=== PATIENT | male | born 1965 | race Two or more races ===

== ENCOUNTER 2025-07-15 10:58 | Emergency (ER) | payer SELFPAY ==
[2025-07-15 11:07] VITALS: BP 138/85; PULSE 59; RESP 18; TEMP 36.4; O2SAT 99; BMI 24.4
--- NOTE | 2025-07-15 11:14 | XR_ITS ---
EXAMINATION: PA chest single view TECHNIQUE: Upright PA chest single view Date and time: July 15, 2025, 1137 hours INDICATIONS: Chest pain today. FINDINGS: Normal heart size Lungs are clear. Osseous structures are intact IMPRESSION: No active disease
--- NOTE | 2025-07-15 11:14 | EKG_ITS ---
[facility] Test Date: 2025-07-15 Pat Name: ORLANDO FLETCHER Department: Room: - Gender: Male Production Manager: : [id number] Requested By: Irvin Cardenas Order Number: [id number] Reading MD: Irvin Cardenas Measurements Intervals [place] Rate: 56 P: 48 [place]: 161 QRS: 64 QRSD: 82 T: 55 QT: 403 QTc: 392 Interpretive Statements SINUS BRADYCARDIA EARLY REPOLARIZATION [ST ELEVATION WITH NORMALLY INFLECTED T-WAVE] No previous ECG available for comparison /[id number]/S0/[id number].pdf
--- NOTE | 2025-07-15 11:15 | PD.EDRME ---
Rapid Medical Screening Exam RME Arrival date/time: 07/15/25 10:58 59-year-old male with no known medical history presents to the emergency room with a chief complaint of dizziness, lightheadedness, left-sided headache x 1 day I have greeted and performed a focused initial assessment of this patient. A comprehensive ED assessment and evaluation of the patient, analysis of all test results, and completion of the medical decision making process will be conducted by additional ED providers. Chief Complaint: Neck Pain/Injury Time Seen by Provider: 07/15/25 11:07 Vital signs: Vital Signs Temperature 97.5 F 07/15/25 11:07 Pulse Rate 59 L 07/15/25 11:07 Respiratory Rate 18 07/15/25 11:07 Blood Pressure 138/85 H 07/15/25 11:07 Pulse Oximetry (%) 99 07/15/25 11:07 Oxygen Delivery Method Room Air 07/15/25 11:07 Vital signs reviewed by provider: Yes Exam: GCS of 15. Clear bilateral lung sounds. Pupils are PERRLA EOMs are intact Clinical Impression: Dizziness, lightheadedness
[2025-07-15 11:36] LABS: Basophils # (Auto) 0.0 Thou/mm3 (0.0-0.2); Basophils % (Auto) 1 % (0-2.5); Eosinophils # (Auto) 0.1 Thou/mm3 (0.0-0.5); Eosinophils % (Auto) 1 % (0-10); Hematocrit 45.3 % (41.0-53.0); Hemoglobin 15.5 g/dL (13.5-16.0); Immature Granulocytes Auto 0.05 Thou/mm3 (0.00-0.00); Lymphocytes # (Auto) 1.5 Thou/mm3 (1.0-4.8); Lymphocytes % (Auto) 23 % (10-50); Mean Corpuscular HGB Conc 34.2 g/dl (31.0-37.0); Mean Corpuscular Hemoglobin 28.9 pg (25.0-35.0); Mean Corpuscular Volume 85 fL (80-100); Monocytes # (Auto) 0.6 Thou/mm3 (0.0-0.8); Monocytes % (Auto) 9 % (0-12); Neutrophils # (Auto) 4.4 Thou/mm3 (1.8-7.7); Neutrophils % (Auto) 66 % (37-80); Nucleated Red Blood Cell # 0.00 Thou/mm3 (0.00-0.00); Nucleated Red Blood Cell % 0 /100 WBC (0); Platelet Count 193 Thou/mm3 (140-440); RDW Standard Deviation 37.8 fL (35.1-43.9); Red Blood Count 5.36 Miln/mm3 (4.50-5.90); White Blood Count 6.7 Thou/mm3 (3.8-10.6)
--- NOTE | 2025-07-15 11:48 | EDNOTE_ITS ---
<Statement entered by Janiya Wadsworth MD - 07/31/25 17:41> I, Janiya Wadsworth MD, have reviewed the history, exam, and assessment of the patient. I have evaluated the patient independently and agree with the plan of care documented by [ ]. All diagnostic studies were reviewed and discussed. I confirm the diagnosis as documented by the Resident. I was present during the Medical Decision Making for this patient. The patient's plan of care was created between myself and the Resident and consistent with our discussion of the patient's case. ED General RME/HPI General Chief complaint: Neck Pain/Injury Stated complaint: NECK PAIN /10, DIZZY, NAUSEA Time Seen by Provider: 07/15/25 11:07 Arrival date/time: 07/15/25 10:58 RME / HPI RME / HPI narrative: 07/15/25 10:58 59-year-old male with no known medical history presents to the emergency room with a chief complaint of dizziness, lightheadedness, left-sided headache x 1 day I have greeted and performed a focused initial assessment of this patient. A comprehensive ED assessment and evaluation of the patient, analysis of all test results, and completion of the medical decision making process will be conducted by additional ED providers. Exam: GCS of 15. Clear bilateral lung sounds. Pupils are PERRLA EOMs are intact Impression: Dizziness, lightheadedness Related Data Home Medications ?Medication ?Instructions ?Recorded ?Confirmed cetirizine 10 mg tablet (Zyrtec) 10 mg PO QDAY PRN All ergy Symptoms 06/21/21 06/21/21 Previous Rx's ?Medication ?Instructions ?Recorded meclizine 25 mg tablet 25 mg PO BID PRN dizziness 1 week 07/15/25 #14 tabs Allergies Allergy/AdvReac Type Severity Reaction Status Date / Time No Known Allergies Allergy Verified 07/15/25 11:03 ED Exam Narrative Physical exam: Physical Exam: GENERAL: Awake, answering questions appropriately, appears stated age HEENT: NC/AT. Moist mucosa. PERRLA/EOMI. Tenderness to palpation of the left levator scapular region CARDIO: Heart RRR, no obvious murmurs, no JVD. PULM: No coughing or visible SOB. Lungs CTA B/L. GI: Abdomen soft, NT/ND, +BS. SKIN/MSK/EXT: No wounds/discoloration/rashes/edema/amputations noted. +Pedal pulses present B/L. NEURO: Walks with an unsteady gait. Oriented x3, Moves extremities x4, no focal neurologic deficits noted, Romberg negative, [id number] negative, pronator drift negative, muscle strength 5 out of 5 bilateral upper and lower extremities, sensations grossly intact, cranial nerves II to XII grossly intact. Hints exam shows no nystagmus, head impulse stays central and there is no changes to test skew Course Quality Measures none Orders Category Date Time Status CT Screening NOW Care 07/15/25 12:44 Active EKG (ED ONLY) *Do not use* NOW Care 07/15/25 11:14 Completed Insert IV NOW Care 07/15/25 12:[address] angio head Stat Exams 07/15/25 12:[address] cervical spine wo con Stat Exams 07/15/25 12:[address] head/brain wo con Stat Exams 07/15/25 12:43 Completed EKG (ED Only) Stat Exams 07/15/25 11:14 Draft XR chest 1V portable Stat Exams 07/15/25 11:14 Completed B-Type Natriuretic Peptide Stat Lab 07/15/25 11:28 Completed CBC Stat Lab 07/15/25 11:28 Completed Comprehensive Metabolic Panel Stat Lab 07/15/25 11:28 Completed Drug Screen,Urine Stat Lab 07/15/25 11:55 Completed Free T4 (Free Thyroxine) Stat Lab 07/15/25 11:28 Completed Magnesium Stat Lab 07/15/25 11:28 Completed Partial Thromboplastin Time Stat Lab 07/15/25 11:28 Completed Prothrombin Time with INR Stat Lab 07/15/25 11:28 Completed TSH [Thyroid Stimulating Hormone] Stat Lab 07/15/25 11:28 Completed Troponin I Stat Lab 07/15/25 11:28 Completed Urinalysis, C/S if Indicated Stat Lab 07/15/25 11:55 Completed Vital Signs Vital signs: Vital Signs Temperature 97.5 F 07/15/25 11:07 Pulse Rate 59 L 07/15/25 11:07 Respiratory Rate 18 07/15/25 11:07 Blood Pressure 138/85 H 07/15/25 11:07 Pulse Oximetry (%) 99 07/15/25 11:07 Oxygen Delivery Method Room Air 07/15/25 11:07 Discharge Plan Plan Patient Disposition: HOME (Self Care) Patient condition on transfer: Stable Prescriptions/Referrals Prescriptions/Med Rec: New meclizine 25 mg tablet 25 mg PO BID PRN (Reason: dizziness) 7 Days Qty: 14 0RF No Action cetirizine [Zyrtec] 10 mg Tablet 10 mg PO QDAY PRN (Reason: Allergy Symptoms) Referrals: Kike Taveras MD [Primary Care Provider, Family Practice] - In 1 week Problem List Clinical Impression: Episodic peripheral vertigo Patient/Caregiver Discharge Instructions Education Materials: Dizziness Vertigo and Balance ... Additional Instructions: Por favor, tome meclizina 25 mg por v?a oral dos veces al d?a seg?n sea necesario para el mareo. Consulte con posada m?dico de cabecera en el plazo de gillian semana para un seguimiento exhaustivo. Si wallace s?ntomas empeoran o si presenta mareos intensos, p?rdida del conocimiento, confusi?n o dolor de gill intenso, acuda a la vishnu de urgencias de inmediato. Print Language: Niuean Stand Alone Forms: Aggie Award Info., Patient Portal Info Letter MDM Narrative MDM hospital course (for use when minimal MDM required): HPI: 59-year-old male with no significant past medical history presents to the ER on 07/15 with an episode of dizziness which happened about he was at work. Patient states that he was sitting in his truck when he suddenly had a feeling that his truck was at an incline. He states that he closed his eyes at which point dizziness continued for about 30 seconds and then subsided. He states that he is still feeling some dizziness especially when he walks but otherwise denies having any headaches, vision changes or hearing changes. He also notes that he also developed a sensation where he felt some movement in his head along with left-sided neck pain. He denies being in an accident. He is apparently being seen by PCP about 1 year ago with blood work and all workup was largely negative and he does not take any prescribed medications. On examination, please refer to the physical exam above; patient presented mildly hypertensive 138/85, heart rate of 59, respiratory of 18, afebrile satting 99 on room air. Pertinent lab findings included CBC without any leukocytosis or anemia, CMP did not show any concerning findings other than mild hyperglycemia glucose 115, urinalysis does not show any signs of infection other than leukocyte esterase positive, chest x-ray showed no active disease and EKG showed sinus bradycardia with a heart rate of 86. Cervical spine CT showed no acute cervical fracture and head CT was also negative. #Central versus peripheral vertigo #Cervical radiculopathy Low likelihood for patient having any neurologic, central vertigo at this time as patient is neurologic exam largely unremarkable other than dizziness upon ambulation which has largely improved since he first presented CTA of the head is negative Plan: Please take meclizine 25mg by mouth twice a day as needed for dizziness Follow-up with your PCP within 1 week for close monitoring If your symptoms worsen or if you develop worsening dizziness, loss of consciousness, confusion or severe headache - please come back to the ER immediately. Patient seen and assessed with attending Dr. RHEA Boswell, DO PGY-2 Internal Medicine - [facility]ME
[2025-07-15 12:06] LABS: B-Type Natriuretic Peptide < 20 pg/mL (0-100)
[2025-07-15 12:09] LABS: Alanine Aminotransferase 29 U/L (10-49); Albumin, Serum 5.2 gm/dL (3.5-5.0); Albumin/Globulin Ratio 2.0 (1.2-2.2); Alkaline Phosphatase 103 U/L (46-116); Anion Gap 7 (7-16); Aspartate Amino Transferase 28 U/L (0-34); BUN/Creatinine Ratio 11 Ratio (12-20); Bilirubin,Total 0.5 mg/dL (0.3-1.2); Blood Urea Nitrogen 9 mg/dL (9-23); Calcium 9.7 mg/dL (8.3-10.6); Calcium (Corrected) 9.7 mg/dL (8.5-10.1); Carbon Dioxide 28.5 mMol/L (20.0-31.0); Chloride 103 mMol/L (98-107); Creatinine (Component) 0.8 mg/dL (0.6-1.3); Estimated Creatinine Clearance 95.2 mL/min (>60); Free T4 (Free Thyroxine) 1.35 ng/dL (0.89-1.76); Globulin 2.6 gm/dL (2.3-3.5); Glucose 115 mg/dL (74-106); Magnesium 1.9 mg/dL (1.6-2.6); Osmolality,Calculated 275 (275-295); Potassium 5.0 mMol/L (3.4-5.1); Sodium 138 mMol/L (136-145); Thyroid Stimulating Hormone 1.13 uIU/mL (0.55-4.78); Total Protein 7.8 gm/dL (5.7-8.2); Troponin I < 0.002 ng/mL (0.0-0.045); eGFR > 60 See Note
[2025-07-15 12:17] LABS: Collection Type, Urine Clean Catch; Squamous Epithelial Cell,Urine 0 /hpf (0-5)
[2025-07-15 12:35] LABS: Bacteria,Urine Rare; Bilirubin,Urine Negative (Negative); Blood,Urine Trace (Negative); Clarity,Urine Clear (Clear/Hazy); Color,Urine Lt-Yellow (Lt Yel-Yel); Culture Indicated,Urine Not Indicated; Glucose, Urine Negative (Negative); Ketones,Urine Negative (Negative); Leukocyte Esterase,Urine Positive (Negative); Nitrite,Urine Negative (Negative); PH,Urine 6.5 (5.0-7.0); Protein,Urine Negative (Neg - Trace); RBC,Urine 10 /hpf (0-3); Specific Gravity,Urine 1.019 (1.001-1.035); Urobilinogen,Urine Negative mg/dL (0.0-1.0); WBC,Urine 2 /hpf (0-5)
--- NOTE | 2025-07-15 12:43 | XR_ITS ---
Examination: CTA brain, head with intravenous contrast. 2-D sagittal, coronal reconstructions. 3-D reconstructions. Exam date and time: July 15, 2025, 1705 hours INDICATIONS: Dizziness episodes beginning this morning CTDI: vol (mGy) 15.6 DLP: (mGycm) 287 Technique: Multiple CTA axial brain, head images post intravenous contrast injection 75 cc, [id number]. 2-D sagittal, coronal reconstructions. 3-D reconstructions, 3-D post processing including vascular maximum intensity projection images. Low dose protocols were performed. One or more of the following dose reduction techniques were used; automated exposure control, adjustment of the mA and/or KV according to patient size, use of iterative reconstruction technique. Findings: Petrous juxtasellar supraclinoid portions internal carotid arteries intact A1 segments anterior cerebral arteries anterior cerebral arteries do fill M1 segments middle cerebral arteries middle cerebral artery trifurcation vessels fill no large vessel occlusions or thrombus dissection or cerebral aneurysm Intracranial vertebral arteries basilar artery posterior cerebral branches fill with no large vessel occlusions IMPRESSION: No cerebral arterial occlusions, thrombus, dissection or cerebral aneurysm Consider brain MRI MRA without contrast, stroke protocol, follow-up
--- NOTE | 2025-07-15 12:43 | XR_ITS ---
Examination: CT cervical spine without contrast 2-D sagittal reconstructions 2-D coronal reconstructions 3-D reconstructions. Exam date and time: July 15, 2025, 1324 hours INDICATIONS: Left-sided neck pain beginning this morning CTDI:vol (mGy) 16.2 DLP: (mGycm) 351 Technique: Multiple 2 mm axial sections of the cervical spine have been obtained. The coronal and sagittal reconstructions have been obtained. 3-D reconstructions have been obtained. Low dose protocols were performed. One or more of the following dose reduction techniques were used; automated exposure control, adjustment of the mA and/or KV according to patient size, use of iterative reconstruction technique. Findings: Axial sections demonstrate intact base of the skull. C1 exhibit satisfactory relationship to the odontoid. No acute cervical vertebral body fracture seen. Alignment posterior spinous processes satisfactory. No significant disc narrowing Impression: No acute cervical fracture. If neck pain persists, suggest MRI cervical spine without contrast follow-up
--- NOTE | 2025-07-15 12:43 | XR_ITS ---
Examination: CT brain head without contrast. 2-D sagittal coronal reconstructions Date and time of exam: July 15, 2025, 1324 hours INDICATIONS: Head pain dizziness neck pain today CTDI: vol (mGy): 46.7 DLP: (mGycm): 864 Technique: Multiple CT axial sections of the brain have been obtained, 5 mm slice thickness. Contrast has not been administered. 2-D sagittal, coronal reconstructions have been obtained Low dose protocols were performed. One or more of the following dose reduction techniques were used; automated exposure control, adjustment of the mA and/or KV according to patient size, use of iterative reconstruction technique. Findings: No significant ventricular enlargement. Intra-axial or extra-axial hemorrhage density is not seen. No mass effect or midline shift Basal cisterns are not remarkable. Fourth ventricle is midline. Cranial vault intact. Impression: Negative for acute hemorrhage, mass effect or midline shift Advise clinical correlation and follow-up accordingly
[2025-07-15 13:37] LABS: INR 1.0 (0.9-1.3); Partial Thromboplastin Time 22.9 Seconds (22.0-36.0); Prothrombin Time 10.8 Seconds (9.0-12.2)
[2025-07-15 14:21] LABS: Amphetamine/Methamp Scrn,U Negative (Negative); Barbiturate Screen,Urine Negative (Negative); Benzodiazepines Screen,Urine Negative (Negative); Benzoylecgonine Screen, Ur Negative (Negative); Fentanyl Screen,Urine Negative (Negative); Opiate Screen,Urine Negative (Negative); THC Screen,Urine Negative (Negative)
[2025-07-15 18:32] VITALS: BP 122/82; PULSE 78; RESP 16; O2SAT 99
== END 2025-07-15 18:32 | disposition home or self-care (01) ==
PROVIDERS: Nurse Practitioner Family; Emergency Provider Emergency Medicine; PCP Family Medicine
DX: H81.399 Other peripheral vertigo, unspecified ear (principal); R07.9 Chest pain, unspecified; M54.2 Cervicalgia; R51.9 Headache, unspecified; R00.1 Bradycardia, unspecified; I10 Essential (primary) hypertension
CPT/HCPCS: 36415; 70450; 70496; 71045; 72125; 80053; 80307; 81001; 83735; 83880; 84439; 84443; 84484; 85025; 85610; 85730; 93005; 99283; A4649; Q9967